=== PATIENT | female | born 1990 | race Caucasian/White ===

== ENCOUNTER 2022-04-10 17:43 | Emergency (ER) | payer BC, SELFPAY ==
[2022-04-10 17:51] VITALS: BP 127/90; PULSE 63; RESP 20; TEMP 37.1; O2SAT 100; BMI 24.7
--- NOTE | 2022-04-10 18:36 | ED.GENADULT ---
HPI - General Adult General Chief complaint: Back Injury/Pain Stated complaint: Shooting pain right behind shoulder blade Time Seen by Provider: 04/10/22 17:46 History of Present Illness HPI narrative: This 31-year-old female comes in reporting pain in her right posterior shoulder and right side of her neck and this pain radiates down completely to her right hand and affects all the fingers. She states that she has had some pain like this for the past 5 months. There was no strenuous activity or injury event that brought this on. This pain is worsened recently where she did not sleep well last night. She states that she gets some relief by holding her arm up and behind her head. Related Data Previous Rx's Medication Instructions Recorded methylprednisolone 4 mg tablets in See Rx Instructions PO .COMPLEX 04/10/22 a dose pack (Medrol (Geronimo)) #21 ea Allergies Allergy/AdvReac Type Severity Reaction Status Date / Time No Known Drug Allergies Allergy Verified 04/10/22 17:51 Review of Systems Status of ROS: Reports: 10 or more systems reviewed and unremarkable except as noted in History and below Narrative: Constitutional: No fevers, no weight gain or loss. Eyes: No discharge. No vision changes. HENT: No congestion, no sore throat, no ear pain. Cardiovascular: No chest pain, no palpitations. Respiratory: No shortness of breath, no wheezes, no cough. Gastrointestinal: No abdominal pain, no vomiting, no diarrhea. Genitourinary: No dysuria, no hematuria. Musculoskeletal: Normal range of motion. Pain in the right neck, shoulder, and radiating down the right arm to the hand. Skin: No rashes, no pruritis. Neurological: No dizziness, weakness, sensory change, speech change. Endo/Heme/Allergies: No bruising or bleeding. No polydipsia. Pysch: no suicidality, no anxiety, no insomnia. All other systems reviewed and are negative. PFSH PFSH Social History Smoking Status: Never smoker Do you use any of these nicotine containing products: None Second hand tobacco smoke exposure: No How often do you have a drink containing alcohol: monthly or less How many standard drinks containing alcohol do you have on a typical day: 1 or 2 How often do you have six or more drinks on one occasion: Never AUDIT-C Alcohol total score: 1 Non-prescribed substance use: denies use service: No Exam Narrative: Exam Narrative: Constitutional: Well-developed, well-nourished, no acute distress. HEENT: Normocephalic, atraumatic. Neck: Normal range of motion. Nontender. Supple. Heart: Intact distal pulses. Lungs: No chest discomfort. No wheezes, rhonchi, or rales. Abdomen: Nontender. Back: Normal range of motion. Extremities: Normal range of motion. No injury. Skin: Intact. No rash. Warm. No erythema or pallor. Neurologic: No altered sensation. No weakness. Alert and oriented. Spurling's test is positive when extending her head and rotating to the right. Psychiatric: No suicidality. No anxiety or depression. No insomnia. Nursing notes and vitals signs are reviewed. Const: Vital Signs, click to edit/add: Vital Signs - 24 hr 04/10/22 17:51 Temperature 98.7 F Pulse Rate [Pulse Oximeter] 63 Respiratory Rate 20 Blood Pressure [Ri ght Upper Arm] 127/90 H Pulse Oximetry 100 Oxygen Delivery Me thod Room Air Course Vital Signs Vital signs: Initial Vital Signs Temperature 98.7 F 04/10/22 17:51 Temperature Source Temporal Artery Scan 04/10/22 17:51 Pulse Rate 63 04/10/22 17:51 Pulse Rhythm 04/10/22 17:51 Respiratory Rate 20 04/10/22 17:51 Blood Pressure 127/90 H 04/10/22 17:51 Blood Pressure Mean 102 04/10/22 17:51 Blood Pressure Position Supine 04/10/22 17:51 Pulse Oximetry 100 04/10/22 17:51 Oxygen Delivery Method 04/10/22 17:51 Vital Signs Temperature 98.7 F 04/10/22 17:51 Pulse Rate 63 04/10/22 17:51 Respiratory Rate 20 04/10/22 17:51 Blood Pressure 127/90 H 04/10/22 17:51 Pulse Oximetry 100 04/10/22 17:51 Oxygen Delivery Method 04/10/22 17:51 Temperature 98.7 F 04/10/22 17:51 Pulse Rate 63 04/10/22 17:51 Respiratory Rate 20 04/10/22 17:51 Blood Pressure 127/90 H 04/10/22 17:51 Pulse Oximetry 100 04/10/22 17:51 Oxygen Delivery Method 04/10/22 17:51 Medical Decision Making MDM Narrative Medical decision making narrative: This patient comes in with symptoms that are most suspicious for a cervical radiculopathy. There was no particular injury event or strenuous activity. Spurling's test is positive and pain is radiating down into her right hand. She gets some relief by holding her right arm up laterally and behind her head. This may indicate radiculopathy at C6. There is no indication at this time for imaging studies. If not improved she may need an MRI. Today she received an oral dose of dexamethasone and prescriptions for Morton, Toradol, Flexeril, and Medrol Dosepak. I advised her to follow-up with a spine clinic here if not improving. Discharge Plan Discharge Clinical Impression: Cervical radiculopathy at C6 Patient Disposition: Home, Self-Care Condition: Unchanged Additional Instructions: Take medication as needed and indicated. Increase activity as tolerated. Follow up with Spine Clinic if not improving or worsening. Call [phone] for appointment. Prescriptions: New methylprednisolone [Medrol (Geronimo)] 4 mg tablets,dose pack See Rx Instructions .ROUTE .COMPLEX Qty: 21 0RF Rx Instructions: orally per package directions Follow Up/Referrals: Shasha Brock MD [Primary Care Provider] - Stand Alone Forms: [employer] Info Instructions
[2022-04-10] MEDS: dexAMETHasone 10 MG/ML inj PO (18:50)
== END 2022-04-10 18:51 | disposition home or self-care (01) ==
PROVIDERS: Emergency Provider Emergency Medicine Emergency Medical Services; PCP Obstetrics & Gynecology
DX: M54.12 Radiculopathy, cervical region (principal)
CPT/HCPCS: 99283; 99284; J1100

== ENCOUNTER 2022-04-15 11:10 | Outpatient (CLI) | payer BC, SELFPAY ==
[2022-04-15 11:26] LABS: Ur HCG Qualitative* Negative (Negative)
== END 2022-04-15 11:11 | disposition home or self-care (01) ==
PROVIDERS: PCP Obstetrics & Gynecology; Visit Provider Nurse Practitioner Family
DX: R10.9 Unspecified abdominal pain (principal); R35.0 Frequency of micturition
CPT/HCPCS: 81025; 87086; 87186

== ENCOUNTER 2022-04-26 15:23 | Outpatient (CLI) | payer BC, SELFPAY ==
--- NOTE | 2022-04-26 15:30 | MR_ITS ---
[facility] [address] [facility] [address] Phone:?[phone] Fax:?[phone] Referring Physician Information: Ophelia Boss [address] [facility] [address] Phone:?[phone] Fax:?[phone] Patient:Cristal Muñoz D.O.B:?1990 Sex:?Female Phone:?[phone] [facility] MRN:?[id number] Exam Date:?04/26/2022 ? EXAM: MRI OF THE CERVICAL SPINE CLINICAL INFORMATION: 31-year-old female with neck and interscapular pain. TECHNICAL INFORMATION: T1, T2 GRE, T2 fast spin echo and STIR sagittal thin sections through the cervical spine with T2 gradient echo axial sections at selected levels. INTERPRETATION: Images reveal straightening of the normal cervical lordosis. The cervical cord displays normal signal characteristics and morphologic features. The cerebellar tonsils are normal in position and morphology. The visualized skull base structures appear normal. There are no paraspinous soft tissue abnormalities. At T1-2 there is a disc bulge without canal or foraminal stenosis. The C7-T1 level is normal. At C6-7 there is mild spondylosis with widely patent canal and foramina. At C5-C6 there is a 3 mm central protrusion indenting the ventral cord without impingement. The central annular fissure is also noted. The foramina are widely patent. Mild spondylosis without canal or foraminal stenosis at C4-5 and C3-4 is demonstrated. The C2-3 level is unremarkable. CONCLUSION: 1. Multilevel degenerative changes with straightening of the normal cervical lordosis. Findings include a focal central HNP at C5-6 indenting the ventral cord. 2. No canal stenosis at remaining levels. 3. No foraminal stenosis, intrinsic cord pathology or paraspinous soft tissue abnormality. Electronically signed on 04/27/2022 10:23:00 AM by Yusuf Wiley M.D.
== END 2022-04-26 15:24 | disposition home or self-care (01) ==
LOC: MRI 15:24
PROVIDERS: PCP Nurse Practitioner Family; Visit Provider Nurse Practitioner Family
DX: M25.511 Pain in right shoulder (principal); M50.222 Other cervical disc displacement at C5-C6 level
CPT/HCPCS: 72141

== ENCOUNTER 2024-02-21 08:04 | Outpatient (CLI) | payer BC, SELFPAY ==
--- NOTE | 2024-02-21 08:00 | CRLHL7_ITS ---
For Patients: As a result of the Cures Act, medical imaging exams and procedure reports are released immediately into your electronic medical record. You may view this report before your referring provider. If you have questions, please contact your health care provider. Indication: Acute sinus disease Technique: Performed without IV contrast Comparison: None available Findings: Frontal sinuses: Near complete opacification of both frontal sinuses. Ethmoid sinuses: Near complete opacification of both ethmoid sinuses. Maxillary sinuses: Complete opacification of both maxillary sinuses. The maxillary sinus drainage pathways are obstructed on both sides. Sphenoid sinuses: Nearly completely opacified, both sphenoethmoidal recesses are obstructed. Nasal Cavity: Rightward curvature of the anterior nasal septum. Left-sided posterior nasal septal spur. No nasal polyp. Nasal turbinate mucosa appears normal. No TMJ abnormalities identified. The visualized portions of the orbits, intracranial contents and upper soft tissue neck are grossly negative. Impression: 1. Severe bilateral pansinus disease. 2. Curvature of the nasal septum. Please note that all CT scans at this facility use dose modulation, iterative reconstruction, and/or weight-based dosing when appropriate to reduce radiation dose to as low as reasonably achievable. Dictated by Henry Davey MD @ 02/21/2024 10:56:38 AM (Electronically Signed)
== END 2024-02-21 08:05 | disposition home or self-care (01) ==
LOC: CT 08:05
PROVIDERS: PCP Nurse Practitioner Family; Visit Provider Nurse Practitioner Family
DX: J01.90 Acute sinusitis, unspecified (principal); J34.2 Deviated nasal septum
CPT/HCPCS: 70486